=== PATIENT | female | born 1990 | race Caucasian/White ===

== ENCOUNTER 2023-08-29 10:30 | Emergency (ER) | payer OTHER ==
[~2023-08-29] VITALS: Ht 165.1 cm; Wt 113.4 kg
[2023-08-29 10:43] VITALS: O2SAT 98
[2023-08-29] MEDS: METHOCARBAMOL 500MG TABLET PO ONE (12:26)
[2023-08-29] MEDS: ACETAMINOPHEN 325MG TABLET PO ONE (12:27)
[2023-08-29] MEDS ORDERED: METH-653 MT (12:44)
[2023-08-29] MEDS ORDERED: ACET-2708 MT (12:44)
[2023-08-29 12:52] VITALS: BP 19/71; PULSE 69; RESP 18; TEMP 98.2
== END 2023-08-29 12:53 | disposition home or self-care (01) ==
LOC: ER 11:26
DX: M25.512 Pain in left shoulder (principal); M25.532 Pain in left wrist; M25.531 Pain in right wrist; Z88.6 Allergy status to analgesic agent; Z90.89 Acquired absence of other organs
CPT/HCPCS: 71046; 73030; 73100; 73120; 81025; 99284